=== PATIENT | female | born 1980 | race Caucasian/White ===

== ENCOUNTER 2016-04-15 09:44 | Emergency (ER) | payer OTHER ==
[~2016-04-15] VITALS: Ht 175.2 cm; Wt 90.7 kg
[~2016-04-15 09:44] MED LIST: ANAPROX DS550 MG PO; AUGMENTIN 875875 MG PO; BACTRIM DS 8001 TA1 PO; BACTRIM DS 8001 TAB PO; BIAXIN500 MG PO; CIPROFLOXACIN500 MG PO; CLARITIN10 MG PO; CLEOCIN HCL150 MG PO; DIFLUCAN150 MG PO; FLONASE ALLERG9.9 ML NAS; HYCODAN,HYDROME10 ML PO; HYDROCODONE BIT1 T11 PO; LEVOFLOXACIN500 MG PO; LEXAPRO20 MG PO; MOTRIN800 MG PO; NO DAILY MEDS; PREDNISONE10 MG PO; PROVENTIL0.09 MG/A1 INH; PYRIDIUM200 M1 PO; PYRIDIUM200 MG PO; ROBITUSSIN AC 110 ML PO; SYNTHROID0.025 MG PO; TRAMADOL HCL50 MG PO; TRIMOX500 MG PO; ULTRAM50 MG PO; ZITHROMAX250 MG PO
[2016-04-15 10:17] LABS: BILIRUBIN NEGATIVE (NEGATIVE); BLOOD TRACE-INTACT (NEGATIVE); CLARITY CLOUDY (CLEAR); COLOR YELLOW (YELLOW); GLUCOSE NEGATIVE (NEGATIVE); KETONE NEGATIVE (NEGATIVE); LEUKO ESTERASE 2+ (NEGATIVE); NITRITE POSITIVE (NEGATIVE); PROTEIN NEGATIVE (NEGATIVE); UROBILINOGEN 0.2 E.U./dl (0.2-1.0)
[2016-04-15 10:49] LABS: BACTERIA 3+; EPITHELIAL CELLS 15-20; URINE REFLEX COMMENT YES (NO)
[2016-04-15] MEDS ORDERED: MACROBID100 M1 PO (10:50)
[2016-04-15] MEDS ORDERED: PYRIDIUM200 M1 PO (10:51)
== END 2016-04-15 10:46 | disposition home or self-care (01) ==
LOC: ED 09:44
PROVIDERS: Nurse Practitioner Family
DX: N39.0 Urinary tract infection, site not specified (principal); R31.9 Hematuria, unspecified; R03.0 Elevated blood-pressure reading, without diagnosis of hypertension; Z91.040 Latex allergy status

== ENCOUNTER 2016-09-08 17:05 | Emergency (ER) | payer OTHER ==
[~2016-09-08] VITALS: Ht 175.2 cm; Wt 95.3 kg
[~2016-09-08 17:05] MED LIST changes: -PYRIDIUM100 MG PO
[2016-09-08 17:19] LABS: BILIRUBIN NEGATIVE (NEGATIVE); BLOOD TRACE-INTACT (NEGATIVE); CLARITY CLOUDY (CLEAR); COLOR YELLOW (YELLOW); GLUCOSE NEGATIVE (NEGATIVE); KETONE NEGATIVE (NEGATIVE); LEUKO ESTERASE TRACE (NEGATIVE); NITRITE NEGATIVE (NEGATIVE); PH 7.5 (5.0-9.0); PROTEIN NEGATIVE (NEGATIVE); UROBILINOGEN 0.2 E.U./dl (0.2-1.0)
[2016-09-08 17:29] LABS: BACTERIA 4+; EPITHELIAL CELLS 0-2; RBC 0-2 rbc/hpf (0-2); URINE REFLEX COMMENT YES (NO)
[2016-09-08] MEDS ORDERED: PYRIDIUM100 MG PO (17:39)
[2016-09-08] MEDS ORDERED: MACROBID100 M1 PO (17:39)
== END 2016-09-08 17:15 | disposition home or self-care (01) ==
LOC: ED 17:05
PROVIDERS: Registered Nurse
DX: N30.00 Acute cystitis without hematuria (principal); Z98.51 Tubal ligation status; Z98.890 Other specified postprocedural states; Z91.040 Latex allergy status

== ENCOUNTER → 2016-09-08 | Outpatient (CLI) | payer OTHER ==
[~2016-09-08] MED LIST changes: +MACROBID100 M1 PO; +PYRIDIUM100 MG PO
[2016-09-08 19:16] LABS: BASO % 0.3 % (0.0-1.0); EOS # 0.2 10*3/uL (0.0-0.4); EOS % 1.9 % (1.0-4.0); HEMOGLOBIN 13.8 g/dl (12.0-16.0); LYMPH % 28.3 % (27.0-41.0); MEAN CELL VOLUME 88.4 fl (81.0-99.0); MEAN CORPUSCULAR HGB 29.1 pg (27.0-31.0); MEAN CORPUSCULAR HGB CONC 32.9 g/dl (33.0-37.0); MEAN PLATELET VOLUME 11.5 fl (9.6-12.3); MONO # 0.8 10*3/uL (0.1-1.0); MONO % 7.1 % (3.0-9.0); NEUT # 6.6 10*3/uL (2.3-7.9); NEUT % 62.2 % (47.0-73.0); PLATELET COUNT AUTOMATED 255 10*3/uL (130-400); RED BLOOD COUNT 4.75 10*6/uL (4.10-5.10); RED CELL DISTRI WIDTH 13.1 % (0-14.5); WHITE BLOOD COUNT 10.7 10*3/uL (4.8-10.8)
[2016-09-08 19:33] LABS: ALBUMIN 3.6 gm/dl (3.1-4.5); ALKALINE PHOSPHATASE 75 U/L (45-117); BILIRUBIN, TOTAL 0.3 mg/dl (0.2-1.0); BUN 14 mg/dl (7-24); CARBON DIOXIDE 28 mmol/L (21-32); CHLORIDE 107 mmol/L (98-107); EST GLOM FILT AFRICAN AMERICAN > 60 ml/min; GLUCOSE 78 mg/dL (65-99); POTASSIUM 4.1 mmol/L (3.5-5.1); SGOT/AST 16 IU/L (3-35); SGPT/ALT 19 U/L (12-78); SODIUM 140 mmol/L (136-145); TOTAL PROTEIN 7.7 gm/dL (6.4-8.2)
[2016-09-08 20:15] LABS: VITAMIN D, 25-HYDROXY 10.9 ng/mL (30-100)
== END | disposition home or self-care (01) ==
LOC: US 07-28 18:00 → LAB 17:49 → US 19:00
PROVIDERS: Nurse Practitioner
DX: E04.2 Nontoxic multinodular goiter (principal); R53.82 Chronic fatigue, unspecified

== ENCOUNTER 2016-12-17 11:17 | Emergency (ER) | payer OTHER ==
[~2016-12-17] VITALS: Ht 175.2 cm; Wt 108.9 kg
[~2016-12-17 11:17] MED LIST changes: +PYRIDIUM100 MG PO
[2016-12-17] MEDS ORDERED: PREDNISONE10 MG PO (11:30)
[2016-12-17] MEDS ORDERED: FLONASE ALLERG9.9 ML NAS (11:30)
[2016-12-17] MEDS ORDERED: CLARITIN10 MG PO (11:30)
== END 2016-12-17 12:38 | disposition home or self-care (01) ==
LOC: ED 11:17
DX: B34.9 Viral infection, unspecified (principal); R03.0 Elevated blood-pressure reading, without diagnosis of hypertension; Z98.51 Tubal ligation status; Z98.890 Other specified postprocedural states; Z91.040 Latex allergy status

== ENCOUNTER 2017-04-22 11:26 | Emergency (ER) | payer OTHER ==
[2017-04-22] MEDS ORDERED: FLONASE ALLERG9.9 ML NAS (11:37)
[2017-04-22] MEDS ORDERED: CLARITIN10 MG PO (11:37)
[2017-04-22] MEDS ORDERED: PREDNISONE10 MG PO (11:37)
[2017-04-22] MEDS ORDERED: ROBITUSSIN DM 105 ML PO (11:37)
== END 2017-04-22 13:33 | disposition home or self-care (01) ==
LOC: ED 11:26
DX: B34.9 Viral infection, unspecified (principal); R03.0 Elevated blood-pressure reading, without diagnosis of hypertension; Z91.040 Latex allergy status

== ENCOUNTER 2017-09-06 07:03 | Emergency (ER) | payer OTHER ==
[~2017-09-06] VITALS: Ht 175.2 cm; Wt 111.1 kg
[~2017-09-06 07:03] MED LIST changes: +ROBITUSSIN DM 105 ML PO
[2017-09-06] MEDS ORDERED: Synthroid,Levo25 MCG PO (07:16)
[2017-09-06] MEDS ORDERED: VALACYCLOVIR H500 M1 PO (07:17)
[2017-09-06] MEDS ORDERED: AMOXICILLIN875 MG PO (07:25)
== END 2017-09-06 07:27 | disposition home or self-care (01) ==
LOC: ED 07:03
DX: K08.89 Other specified disorders of teeth and supporting structures (principal); Z91.040 Latex allergy status; Z79.899 Other long term (current) drug therapy

== ENCOUNTER 2017-11-13 08:43 | Emergency (ER) | payer OTHER ==
[~2017-11-13] VITALS: Ht 175.2 cm; Wt 86.2 kg
[~2017-11-13 08:43] MED LIST changes: +AMOXICILLIN875 MG PO; +Synthroid,Levo25 MCG PO; +VALACYCLOVIR H500 M1 PO
[2017-11-13] MEDS ORDERED: CLINDAMYCIN HC300 MG PO (08:55)
[2017-11-13] MEDS ORDERED: Motrin,Rufen800 MG PO (08:56)
== END 2017-11-13 09:02 | disposition home or self-care (01) ==
LOC: ED 08:43
DX: K04.7 Periapical abscess without sinus (principal); Z98.51 Tubal ligation status; Z98.890 Other specified postprocedural states; Z79.899 Other long term (current) drug therapy; Z91.040 Latex allergy status

== ENCOUNTER 2018-06-19 08:25 | Emergency (ER) | payer OTHER ==
[~2018-06-19] VITALS: Ht 175.2 cm; Wt 108.9 kg
[~2018-06-19 08:25] MED LIST changes: +CIPRO500 MG PO; +CLINDAMYCIN HC300 MG PO; +Motrin,Rufen800 MG PO
[2018-06-19] MEDS ORDERED: FLONASE ALLERG9.9 ML NAS (09:37)
[2018-06-19] MEDS ORDERED: AMOXICILLIN500 M2 PO (09:37)
[2018-09-05] MEDS ORDERED: MACROBID100 M1 PO (21:18)
== END 2018-06-19 09:41 | disposition home or self-care (01) ==
LOC: ED 08:25
DX: H66.93 Otitis media, unspecified, bilateral (principal); J01.90 Acute sinusitis, unspecified; Z91.040 Latex allergy status; Z79.899 Other long term (current) drug therapy

== ENCOUNTER 2018-10-16 00:27 | Emergency (ER) | payer OTHER ==
[~2018-10-16] VITALS: Ht 175.2 cm; Wt 86.2 kg
--- NOTE | ~2018-10-16 | EKG ---
[place], [place] ELECTROCARDIOGRAM REPORT NAME: PO SOFIA UNIT #: [id number] ROOM: DOCTOR: AYDEN DRAFT REPORT BIRTHDATE: [birth year] [facility] Test Date: 2018-10-16 Test Time: 00:34:15 Pat Name: PO SOFIA Department: ED Room: Gender: F Human Services Professional: : 1980 Requested By: MELANI NUÑEZ Order Number: [id number] Reading MD: Gurvinder Ornelas MD Measurements Intervals [place] Rate: 82 P: 70 SD: 155 QRS: 52 QRSD: 88 T: 27 QT: 389 QTc: 455 Interpretive Statements Sinus rhythm Low voltage, precordial leads Nonspecific ST T changes Electronically Signed On 10-16-2018 4:29:09 PDT by Gurvinder Ornelas MD CM:EKGRPT:ELECTROCARDIOGRAM REPORT [id number] MELANI RIGGINS DRAFT REPORT MELANI NUÑEZ DO
--- NOTE | ~2018-10-16 | EKG ---
[place], [place] ELECTROCARDIOGRAM REPORT NAME: PO SOFIA UNIT #: [id number] ROOM: DOCTOR: EPIPHANY DRAFT REPORT BIRTHDATE: [birth year] [facility] Test Date: 2018-10-16 Test Time: 03:24:49 Pat Name: PO SOFIA Department: ED Room: Gender: F Training And Development Officer: Marcellus Arnold : 1980 Requested By: MELANI NUÑEZ Order Number: [id number] Reading MD: Gurvinder Ornelas MD Measurements Intervals [place] Rate: 58 P: 30 [place]: 136 QRS: 33 QRSD: 87 T: 12 QT: 427 QTc: 420 Interpretive Statements Sinus rhythm Nonspecific ST T changes Electronically Signed On 10-16-2018 4:29:25 PDT by Gurvinder Ornelas MD CM:EKGRPT:ELECTROCARDIOGRAM REPORT [id number] MELANI RIGGINS DRAFT REPORT MELANI NUÑEZ DO
[~2018-10-16 00:27] MED LIST changes: +AMOXICILLIN500 M2 PO
[2018-10-16 00:55] LABS: BASO % 0.3 % (0.0-1.0); EOS # 0.2 10*3/uL (0.0-0.4); EOS % 1.8 % (1.0-4.0); HEMATOCRIT 39.6 % (37.0-47.0); HEMOGLOBIN 12.9 g/dl (12.0-16.0); LYMPH # 4.4 10*3/uL (1.3-4.4); LYMPH % 33.5 % (27.0-41.0); MEAN CELL VOLUME 89.4 fl (81.0-99.0); MEAN CORPUSCULAR HGB 29.1 pg (27.0-31.0); MEAN CORPUSCULAR HGB CONC 32.6 g/dl (33.0-37.0); MEAN PLATELET VOLUME 11.3 fl (9.6-12.3); MONO # 0.8 10*3/uL (0.1-1.0); NEUT # 7.7 10*3/uL (2.3-7.9); NEUT % 58.2 % (47.0-73.0); PLATELET COUNT AUTOMATED 237 10*3/uL (130-400); RED BLOOD COUNT 4.43 10*6/uL (4.10-5.10); WHITE BLOOD COUNT 13.2 10*3/uL (4.8-10.8)
[2018-10-16 01:00] LABS: ACT PARTIAL THROMBO TIME 30.6 SECONDS (20.0-32.1); INTERNATIONAL NORM RATIO 0.9 (2.0-3.5)
[2018-10-16 01:04] LABS: ALBUMIN 3.7 gm/dl (3.1-4.5); ALKALINE PHOSPHATASE 76 U/L (45-117); BUN 10 mg/dl (7-24); CHLORIDE 104 mmol/L (98-107); CREATININE 1.05 mg/dL (0.55-1.02); POTASSIUM 3.7 mmol/L (3.5-5.1); SGOT/AST 13 IU/L (3-35); SGPT/ALT 21 U/L (12-78); SODIUM 139 mmol/L (136-145); TOTAL PROTEIN 7.5 gm/dL (6.4-8.2)
[2018-10-16 01:11] LABS: TROPONIN I < 0.015 ng/ml (<0.045)
== END 2018-10-16 04:05 | disposition home or self-care (01) ==
LOC: ED 00:27
PROVIDERS: Student in an Organized Health Care Education/Training Program
DX: R07.89 Other chest pain (principal); M25.532 Pain in left wrist; R06.02 Shortness of breath; E03.9 Hypothyroidism, unspecified; Z91.040 Latex allergy status; Z79.899 Other long term (current) drug therapy; X50.0XXA Overexertion from strenuous movement or load, initial encounter; Y93.89 Activity, other specified; Y92.69 Other specified industrial and construction area as the place of occurrence of the external cause; Y99.8 Other external cause status

== ENCOUNTER → 2019-06-20 | Outpatient (CLI) | payer OTHER | END | disposition home or self-care (01) | LOC: US 13:26 | DX: E03.9 Hypothyroidism, unspecified (principal); E04.1 Nontoxic single thyroid nodule ==

== ENCOUNTER → 2019-10-24 | Day surgery (SDC) | payer OTHER | END | disposition home or self-care (01) | LOC: RAD 09-23 11:00 → US 09-23 11:00 → SDC 09-23 11:00 → US 09-26 11:00 → RAD 09-26 11:00 → SDC 09-26 11:00 → US 10-03 11:00 → SDC 10-03 11:00 → RAD 10-03 11:00 → SDC 10-07 11:00 → US 10-17 11:00 → RAD 10-17 11:00 → SDC 10-17 11:00 | PROVIDERS: Nurse Practitioner Primary Care | DX: E04.1 Nontoxic single thyroid nodule (principal) ==

== ENCOUNTER 2019-12-13 09:31 | Emergency (ER) | payer OTHER ==
[~2019-12-13] VITALS: Wt 106.6 kg
[2019-12-13] MEDS ORDERED: PENICILLIN VK500 MG PO (09:52)
[2019-12-13] MEDS ORDERED: IBU800 MG PO (09:52)
== END 2019-12-13 10:14 | disposition home or self-care (01) ==
LOC: ED 09:31
DX: K04.7 Periapical abscess without sinus (principal); K08.89 Other specified disorders of teeth and supporting structures; Z91.040 Latex allergy status; Z79.899 Other long term (current) drug therapy

== ENCOUNTER → 2019-12-17 | Outpatient (CLI) | payer OTHER ==
[~2019-12-17] MED LIST changes: +IBU800 MG PO; +PENICILLIN VK500 MG PO
== END | disposition home or self-care (01) ==
LOC: US 11-11 14:00
PROVIDERS: ATTEND Nurse Practitioner Primary Care
DX: E04.1 Nontoxic single thyroid nodule (principal)

== ENCOUNTER 2020-01-23 15:20 | Emergency (ER) | payer OTHER ==
[~2020-01-23] VITALS: Ht 175.2 cm; Wt 86.2 kg
[2020-01-23] MEDS ORDERED: PROAIR HFA8.5 GM INH (18:29)
[2020-01-23] MEDS ORDERED: ZITHROMAX250 MG PO (18:29)
[2020-01-23] MEDS ORDERED: TESSALON PERLE100 M1 PO (18:29)
[2020-01-23] MEDS ORDERED: PREDNISONE20 M1 PO (18:29)
== END 2020-01-23 18:52 | disposition home or self-care (01) ==
LOC: ED 15:20
DX: J40 Bronchitis, not specified as acute or chronic (principal); Z91.040 Latex allergy status; Z79.2 Long term (current) use of antibiotics; Z79.899 Other long term (current) drug therapy

== ENCOUNTER → 2020-02-03 | Outpatient (CLI) | payer OTHER ==
[~2020-02-03] MED LIST changes: +PREDNISONE20 M1 PO; +PROAIR HFA8.5 GM INH; +TESSALON PERLE100 M1 PO
== END | disposition home or self-care (01) ==
LOC: MAMMO 07:21
PROVIDERS: ATTEND Nurse Practitioner Primary Care
DX: Z12.31 Encounter for screening mammogram for malignant neoplasm of breast (principal)

== ENCOUNTER → 2020-09-16 | Outpatient (CLI) | payer OTHER | END | disposition home or self-care (01) | LOC: US 09-01 15:00 | PROVIDERS: ATTEND Nurse Practitioner Primary Care | DX: E04.2 Nontoxic multinodular goiter (principal) ==

== ENCOUNTER 2020-12-25 11:02 | Emergency (ER) | payer OTHER ==
[~2020-12-25] VITALS: Ht 177.8 cm; Wt 104.3 kg
== END 2020-12-25 21:38 | disposition left against medical advice (07) ==
LOC: ED 11:02
DX: R51.9 Headache, unspecified (principal); J02.9 Acute pharyngitis, unspecified; Z53.21 Procedure and treatment not carried out due to patient leaving prior to being seen by health care provider

== ENCOUNTER 2021-07-26 08:26 | Emergency (ER) | payer OTHER ==
[~2021-07-26] VITALS: Ht 172.7 cm; Wt 99.8 kg
[2021-07-26] MEDS ORDERED: ZITHROMAX250 MG PO (08:57)
== END 2021-07-26 09:06 | disposition home or self-care (01) ==
LOC: ED 08:26
DX: J20.9 Acute bronchitis, unspecified (principal); Z91.040 Latex allergy status; Z79.899 Other long term (current) drug therapy; Z98.51 Tubal ligation status; Z90.89 Acquired absence of other organs; Z98.890 Other specified postprocedural states

== ENCOUNTER 2022-01-23 19:07 | Emergency (ER) | payer OTHER | END 2022-01-23 21:46 | disposition left against medical advice (07) | LOC: ED 19:07 | DX: Z53.21 Procedure and treatment not carried out due to patient leaving prior to being seen by health care provider (principal) ==

== ENCOUNTER → 2024-08-07 | Outpatient (CLI) | payer OTHER | END | disposition home or self-care (01) | LOC: US 12:42 | PROVIDERS: ATTEND Nurse Practitioner Primary Care | DX: E04.1 Nontoxic single thyroid nodule (principal); E04.9 Nontoxic goiter, unspecified ==